=== PATIENT | female | born 1960 | race African-American/Black ===

== ENCOUNTER 2021-07-20 16:28 | Outpatient (REF) | payer OTHER, SELFPAY ==
[2021-07-20 17:29] LABS: Blood Urea Nitrogen 18 mg/dL (9-16); Estimated Glomerular Filt Rate 50
== END 2021-07-20 16:29 | disposition home or self-care (01) ==
LOC: HO.LAB 16:28
PROVIDERS: PCP Internal Medicine; Visit Provider Psychiatry & Neurology Neurology
DX: G40.209 Localization-related (focal) (partial) symptomatic epilepsy and epileptic syndromes with complex partial seizures, not intractable, without status epilepticus (principal); F41.8 Other specified anxiety disorders
CPT/HCPCS: 36415; 82565; 84520

== ENCOUNTER 2021-07-31 11:05 | Outpatient (REF) | payer OTHER, SELFPAY ==
--- NOTE | ~2021-07-31 | MR_ITS ---
EXAMINATION: MR BRAIN WITHOUT AND WITH CONTRAST CLINICAL INFORMATION: Complex partial seizure disorder. COMPARISON: None TECHNIQUE: Multiplanar, multisequence MRI of the brain was obtained before and after the intravenous administration of 8.5 mL Gadavist. 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 Diminished caliber of the ventricular system as well. These findings are associated with diffuse pachymeningeal enhancement and are suggestive of spontaneous intracranial hypotension. No focal reduced diffusion is seen to suggest acute or subacute cerebral ischemia. Gradient refocused imaging demonstrates no evidence for hemorrhage, hemosiderin staining or abnormal mineral deposition. No extra-axial fluid collections are identified. The mesial temporal lobe structures are bilaterally symmetric and are normal in morphology and signal intensity. There is no abnormal brain parenchymal enhancement. No mass lesions are identified. The ventricular system and subarachnoid spaces appear diminished in volume. Signal voids are noted in the visualized major intracranial vessels and there appears to be some rounding of the descending portion of the superior sagittal sinus and left transverse sinus which may reflect a minimal degree of venous distention but this is not a certain finding. Minor mucosal thickening in the ethmoid complex noted. Osseous marrow signal intensity appears within normal limits. MR/MR head/brain wo/w con IMPRESSION: 1. As discussed above, the findings are consistent with a spontaneous intracranial hypotension. Consider CT myelography of the spine to assess for CSF leak if clinically consistent. 2. Otherwise, the brain parenchyma is normal in morphology and signal with no abnormal brain parenchymal enhancement or focal lesion. No subdural effusions, intracranial hemorrhage, infarct or midline shift. The [facility] staff will call to confirm receipt of this report with acknowledgement of the findings and any recommendations.
== END 2021-07-31 11:06 | disposition home or self-care (01) ==
LOC: HO.MRI 11:05
PROVIDERS: Visit Provider Psychiatry & Neurology Neurology
DX: G40.209 Localization-related (focal) (partial) symptomatic epilepsy and epileptic syndromes with complex partial seizures, not intractable, without status epilepticus (principal)
CPT/HCPCS: 70553; A9585